=== PATIENT | female | born 1955 | race Caucasian/White ===

== ENCOUNTER → 2016-11-05 | Day surgery (SDC) | payer BC ==
--- NOTE | 2016-11-06 16:15 | PATH ---
Surgical Pathology Report Patient Name: BEATRIZ STONE [facility]. Rec. #: [id number] /Age/Gender: 1955 (Age: 61) / F Account: [id number] Location: Taken: 11/05/2016 Received: 11/05/2016 Reported: 11/06/2016 Physicians: Ailin Crystal MD Specimen(s) Received RIGHT BREAST CORE BIOPSY Clinical History Ultrasound findings: Suspicious Linear clumped enhancement central zone right breast Final Diagnosis BREAST, RIGHT, CORE BIOPSY: FOCAL ATYPICAL DUCTAL HYPERPLASIA (ADH) ARISING IN A BACKGROUND OF COLUMNAR CELL CHANGES/HYPERPLASIA WITH FEW ASSOCIATED CALCIFICATIONS. Electronically Signed Kaitlynn Jensen M.D. Gross Description Received in formalin, labeled "right breast and" are multiple fragments of dickerson and yellow fatty tissue measuring 5 x 2 x 0.3 cm. in greatest dimension. The specimen is submitted in toto in two cassettes. Time to formalin fixation: 2 minutes Total formalin fixation time: Approximately 7.5 hours. AF/11/05/2016 final/11/05/2016
== END | disposition home or self-care (01) ==
LOC: FRADUS-SUR 10:06
PROVIDERS: ATTEND Obstetrics & Gynecology
PROC: 0HBT3ZX Excision of Right Breast, Percutaneous Approach, Diagnostic (ICD-10-PCS; principal; 2016-11-05)
DX: N63 Unspecified lump in breast (principal); N60.91 Unspecified benign mammary dysplasia of right breast
CPT/HCPCS: 19085; 88305-TC; A4648; C1887; G0206-TC

== ENCOUNTER 2016-11-28 08:47 | Day surgery (SDC) | payer BC ==
--- NOTE | 2016-11-24 16:09 | HP ---
Admitting History and Physical - Primary Care Physician PCP: Brandi Hamm - Admission Chief Complaint: Right atypia History of Present Illness: 61 year old postmenapausal female with negative screening mammogram 09/2016. Breast MRI 10/2016 showed right central enhancement She underwent MRI core biopsy right breast which showed ADH 10/2016. 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 (insomnia) Cardiovascular: Yes: HTN Gastrointestinal: Yes: GERD Renal/: Yes: Renal Calculi, Other (renal cyst) - Past Surgical History Past Surgical History: Yes: Cholecystectomy (1999), - Smoking History Smoking history: Former smoker Have you smoked in the past 12 months: No Aproximately how many cigarettes per day: 0 If you are a former smoker, when did you quit?: 1991 - Alcohol/Substance Use Hx Alcohol Use: No Home Medications - Allergies Allergies/Adverse Reactions: Allergies Allergy/AdvReac Type Severity Reaction Status Date / Time No Known Allergies Allergy Verified 11/15/15 11:29 - Home Medications Home Medications: Ambulatory Orders Cholecalciferol (Vitamin D3) [Vitamin D3 -] 1,000 unit PO DAILY 11/15/15 Family Disease History - Family Disease History Family Disease History: CA: Father (CRC 64), Mother (breast ca 7o's), Sister ( Breast ca 70's) Physical Examination Constitutional: Yes: Well Nourished, No Distress Breast(s): Yes: Other (symmetrical no palpable masses or discharge. post bx changes right breast, diffusely nodular bilaterally no adenopathy) Problem List - Problems (1) Atypical ductal hyperplasia of right breast Code(s): N60.91 - UNSPECIFIED BENIGN MAMMARY DYSPLASIA OF RIGHT BREAST Assessment/Plan Right breast wide excision with mammogram needle localization
[2016-11-26 13:14] VITALS: BMI 38.2
[2016-11-28] MEDS ORDERED: diazePAM 2 MG TABLET PO ONE (09:41)
[2016-11-28] MEDS ORDERED: DEXAMETHASONE SOD PHOSPHATE 4 MG/1 ML VIAL ONE (12:01)
[2016-11-28] MEDS ORDERED: MIDAZOLAM HCL 2 MG/2 ML SINGLE DOSE VIAL ONE (12:01)
[2016-11-28] MEDS ORDERED: ONDANSETRON 4 MG/2 ML VIAL ONE (12:01)
[2016-11-28] MEDS ORDERED: SUCCINYLCHOLINE CHLORIDE 200 MG/10 ML VIAL ONE (12:03)
[2016-11-28] MEDS ORDERED: PROPOFOL 20 ML ONE (12:03)
[2016-11-28] MEDS ORDERED: ONDANSETRON 4 MG/2 ML VIAL IVPB PRN (12:09)
[2016-11-28] MEDS ORDERED: KETOROLAC TROMETHAMINE 30 MG/1 ML VIAL IVPUSH PRN (12:09)
[2016-11-28] MEDS ORDERED: DEXTROSE 5%-0.45% SALINE 1,000 ML IV SCH (12:15)
[2016-11-28] MEDS ORDERED: ceFAZolin SODIUM 1 GM VIAL ONE (12:21)
[2016-11-28] MEDS ORDERED: LIDOCAINE HCL 1%, 10 MG/ML (50 mL VIAL) IJ ONE (12:29)
[2016-11-28] MEDS ORDERED: DESFLURANE GAS 240 ML BOTTLE IH ONE (12:31)
[2016-11-28] MEDS ORDERED: oxyCODONE HCL 5 MG TABLET PO PRN (13:23)
[2016-11-28] MEDS ORDERED: PROMETHAZINE HCL 25 MG/1 ML VIAL IVPUSH PRN (13:23)
[2016-11-28] MEDS ORDERED: ONDANSETRON 4 MG/2 ML VIAL IVPUSH PRN (13:23)
[2016-11-28] MEDS ORDERED: LACTATED RINGERS SOLUTION 1,000 ML IV SCH (13:30)
[2016-11-28] MEDS ORDERED: BACITRACIN/POLYMYXIN OPH OINT 3.5 GM TUBE ONE (14:01)
[2016-11-28 14:08] VITALS: TEMP 97.5
[2016-11-28 15:17] VITALS: BP 108/64; PULSE 61
--- NOTE | 2016-11-28 17:21 | OP ---
DATE OF OPERATION: 11/28/2016 PREOPERATIVE DIAGNOSIS: Right breast atypia. POSTOPERATIVE DIAGNOSIS: Right breast atypia. PROCEDURE: Right breast wide excision. SURGEON: Brandi Hamm M.D. BLACKING MACHINE OPERATOR: Marquise Sal ANESTHESIA: General. ANESTHESIOLOGIST: Devon See M.D. SPECIMEN: Right breast tissue. COMPLICATIONS: None. ESTIMATED BLOOD LOSS: Minimal. INDICATION FOR PROCEDURE: The patient is a 71-year-old post menopausal female. Routine screening mammogram in September 2016 was negative; however, due to her significant family history she qualified for a breast MRI which showed enhancement in the right central breast. MRI guided biopsy showed atypia. She was recommended excision of the atypia and is going to the operating room today for that procedure. PROCEDURE: The patient was taken to breast imaging where the clip in the right breast was localized. She was taken to ambulatory surgery where informed consent was obtained and the right breast was labelled with a marker. She was then taken to the operating room and placed on the operating table in the supine position. Sequential compression devices were placed on both legs. She received antibiotics prior to surgery. The right breast was prepped and draped in the usual fashion. Examination of the right breast showed a localizing wire in the upper outer quadrant. The right breast was prepped and draped in the usual fashion. A radial incision was made in the right breast. The incision was deepened using electrocautery. The tip of the needle was identified. Electrocautery was used to mobilize the tissue around the needle. Once the specimen was completely from the remaining breast parenchyma , the needle was disassembled and the specimen was removed. It was labeled with silk sutures with a long lateral stitch and a short superior stitch. Specimen radiographs showed the clip and specimen were included. The specimen was then placed in formalin and sent to pathology for further evaluation. The wound was irrigated and inspected for hemostasis. The bleeding points were controlled with electrocautery. The skin was infiltrated with 0.25% Marcaine. The deep tissue was closed with interrupted sutures of 2-0 plain suture. The dermis was closed with interrupted stitches of 3-0 Vicryl. The skin was closed with a running subcuticular closure of 4-0 Biosyn. The wound was cleaned and dressed with a sterile gauze dressing. A surgical bra was applied. The patient was awakened and taken to the recovery area in satisfactory condition. Ailin [id number] MTDD
--- NOTE | 2016-12-04 11:29 | PATH ---
Surgical Pathology Report Patient Name: BEATRIZ STONE [facility]. Rec. #: [id number] /Age/Gender: 1955 (Age: 61) / F Account: [id number] Location: [facility] Taken: 11/28/2016 Received: 11/28/2016 Reported: 12/04/2016 Physicians: Brandi Hamm M.D. Specimen(s) Received RIGHT BREAST WIDE EXCISION Clinical History Atypia Final Diagnosis BREAST, RIGHT, WIDE EXCISION: BENIGN BREAST TISSUE SHOWING PROLIFERATIVE FIBROCYSTIC CHANGES INCLUDING USUAL DUCTAL HYPERPLASIA (UDH), FOCAL CYSTIC APOCRINE METAPLASIA, STROMAL FIBROSIS AND COLUMNAR CELL CHANGES. NO RESIDUAL ATYPIA IS IDENTIFIED. PRIOR BIOPSY SITE CHANGES ARE PRESENT. Electronically Signed Kaitlynn Jensen M.D. Gross Description Received in formalin, labeled "right breast wide excision," is a 7 x 5.5 x 2.5 cm. dickerson-yellow, irregular, portion of fibroadipose tissue with a needle localization wire present. There is a short suture marking the superior aspect and a long suture marking the lateral aspect, per the surgeon. There is no skin present. The specimen is inked as follows: superior and lateral blue; inferior green; medial yellow; anterior red; deep black. The specimen is serially sectioned from medial to lateral. Sectioning reveals yellow adipose tissue with scant cabral fibrous tissue. There are hemorrhagic areas present towards the superior and deep margins. No definitive mass lesion is identified. Production Control Manager sections are submitted in 13 cassettes as follows: 1 -7: hemorrhagic area with superior, inferior, and deep margins; 8: anterior margin; 9: medial margin; 10: lateral margin; 11-13: additional tax representative sections. Time to formalin fixation: 17 minutes Total formalin fixation time: Approximately 78 hours. [facility]/12/01/2016 [facility]/12/01/2016
== END 2016-11-28 14:40 | disposition home or self-care (01) ==
LOC: FASU 08:47
PROVIDERS: ATTEND Surgery
PROC: 0HBT0ZX Excision of Right Breast, Open Approach, Diagnostic (ICD-10-PCS; principal; 2016-11-28 12:13)
DX: N60.81 Other benign mammary dysplasias of right breast (principal); N60.11 Diffuse cystic mastopathy of right breast; N60.31 Fibrosclerosis of right breast
CPT/HCPCS: 19281; 88307-TC; 94760